=== PATIENT | female | born 1950 | race Caucasian/White ===

== ENCOUNTER → 2018-02-27 08:29 | Outpatient (CLI) | payer MEDICARE, OTHER, SELFPAY ==
--- NOTE | 2018-02-27 | DI.MG.S_ITS ---
BILATERAL DIGITAL SCREENING MAMMOGRAM 3D/2D WITH CAD: 02/27/2018 CLINICAL: Routine screening. Family history of breast cancer. Comparison is made to exams dated: 03/14/2016 mammogram, 01/26/2015 mammogram, and 10/04/2013 mammogram - [facility]. The tissue of both breasts is heterogeneously dense. This may lower the sensitivity of mammography. Current study was also evaluated with a Computer Aided Detection (CAD) system. No significant masses, calcifications, or other findings are seen in either breast. There has been no significant interval change. IMPRESSION: NEGATIVE There is no mammographic evidence of malignancy. A 1 year screening mammogram is recommended. This exam was interpreted at Station ID: [id number]. NOTE: For mammograms, a report in lay terms will be sent to the patient. Approximately 15% of breast malignancies will not be visualized mammographically. In the management of a palpable breast mass, a negative mammogram must not discourage biopsy of a clinically suspicious lesion. Electronically Signed By: Savannah araujo/mireya:03/01/2018 10:47:58 copy to: WILFRID CASILLAS letter sent: Normal Exam ACR BI-RADS Category 1: Negative 3341F
== END ==
PROVIDERS: Family Provider Family Medicine; PCP Family Medicine; Visit Provider Family Medicine
DX: Z12.31 Encounter for screening mammogram for malignant neoplasm of breast (principal); Z80.3 Family history of malignant neoplasm of breast
CPT/HCPCS: 77063; 77067

== ENCOUNTER → 2019-07-07 09:04 | Outpatient (CLI) | payer MEDICARE, OTHER, SELFPAY ==
--- NOTE | 2019-07-07 | DI.MG.S_ITS ---
BILATERAL DIGITAL SCREENING MAMMOGRAM 3D/2D WITH CAD: 07/07/2019 CLINICAL: Routine screening. Family history of breast cancer. Comparison is made to exams dated: 02/27/2018 mammogram, 03/14/2016 mammogram, and 01/26/2015 mammogram - [facility]. The tissue of both breasts is heterogeneously dense. This may lower the sensitivity of mammography. Current study was also evaluated with a Computer Aided Detection (CAD) system. No significant masses, calcifications, or other findings are seen in either breast. There has been no significant interval change. IMPRESSION: NEGATIVE There is no mammographic evidence of malignancy. A 1 year screening mammogram is recommended. This exam was interpreted at Station ID: [id number]. NOTE: For mammograms, a report in lay terms will be sent to the patient. Approximately 15% of breast malignancies will not be visualized mammographically. In the management of a palpable breast mass, a negative mammogram must not discourage biopsy of a clinically suspicious lesion. Electronically Signed By: Savannah araujo/mireya:07/07/2019 12:01:14 copy to: WILFRID CASILLAS letter sent: Normal Exam ACR BI-RADS Category 1: Negative 3341F
== END ==
PROVIDERS: PCP Family Medicine; Visit Provider Family Medicine
DX: Z12.31 Encounter for screening mammogram for malignant neoplasm of breast (principal); Z80.3 Family history of malignant neoplasm of breast
CPT/HCPCS: 77063; 77067

== ENCOUNTER 2020-05-24 08:52 | Day surgery (SDC) | payer MEDICARE, OTHER, SELFPAY ==
[2020-05-24 09:18] VITALS: BP 130/63; PULSE 69; RESP 14; TEMP 36.4; O2SAT 100; BMI 23.6
--- NOTE | 2020-05-24 09:56 | PM.HP.1 ---
History of Present Illness History of Present Illness Date Patient Seen: 05/24/20 Time Patient Seen: 09:56 Chief complaint: SDC Narrative: The patient is a woman whose last colonoscopy was 5 years ago. She has a history of polyps in her last 2 colonoscopies. She is brought in for a screening exam in a high risk patient. No family history colon cancer. Patient History Surgical History Status post arthroscopy Status post arthroscopy Status post delivery Status post sclerotherapy of varicose veins Family & Social History Family History Sister Age: 65 Hypertension Social History: household members spouse Tobacco & Substance use: Smoking Status Never smoker alcohol intake current alcohol intake frequency 0-2 drinks per day Substance Use Type does not use Meds Home Medications and Allergies Home Medications Medication Instructions Recorded Confirmed Type valacyclovir [Valtrex] 1,000 mg PO SEE INSTRUCTIONS #16 07/07/17 05/24/20 Rx tab Allergies Allergy/AdvReac Type Severity Reaction Status Date / Time amoxicillin [From Augmentin] Allergy Mild RASH Verified 05/24/20 09:28 clavulanic acid Allergy Mild RASH Verified 05/24/20 09:28 [From Augmentin] cefuroxime AdvReac Mild GROGGINESS Verified 05/24/20 09:28 Review of Systems Review of Systems ROS: Yes All systems reviewed with the patient and are negative except as otherwise documented Exam Vital Signs (past 8 hours): - 05/24/20 09:18 Temperature 97.6 F Pulse Rate 69 Respiratory Rate 14 Blood Pressure 130/63 Pulse Oximetry 100 Oxygen Delivery Method Room Air Narrative Exam Narrative: Pleasant cooperative patient no apparent distress. Lungs are clear to auscultation. No rales or rhonchi. Heart regular rate and rhythm no murmur gallop. Abdomen is soft nontender without mass. No obvious hernias. Patient is alert and oriented x3. Assessment & Plan Assessment & Plan narrative: The patient for a screening colonoscopy. I have discussed the procedure with them. Risks of bleeding, perforation which would necessitate major operation, failure to find remove all lesions, the potential tattoo were all discussed. All questions were answered. They wished to proceed.
--- NOTE | 2020-05-24 09:58 | PM.PREOP ---
Pre-operative Note COVID-19 COVID-19 status: Negative Result date/Date tested (Pos, Neg/Pending): 05/21/20 Interval Note History & Physical reviewed/Exam performed by Physician: Yes Changes to H&P: No ASA Class (for procedural sedation): I
[2020-05-24] MEDS: fentaNYL 250 MCG/5 ML INJ IV ×2 (11:02→11:28)
[2020-05-24] MEDS: MIDAZOLAM 5 MG/5 ML VIAL IV ×2 (11:03→11:27)
[2020-05-24] MEDS: LACTATED RINGERS 1,000 ML 200 ML IV (11:04)
--- NOTE | 2020-05-24 11:37 | PM.OP.ENDO ---
Operative Date/Time/Diagnoses Date of procedure: 05/24/20 Time of procedure: 11:37 Pre-op diagnosis: Screening exam. Patient has a history of polyps. Last exam 5 years ago. Post-op diagnosis: same Procedure & Clinicians Study performed: Colonoscopy Same procedure as scheduled: Yes Indications: Screening Surgeon: Beau Craven Procedure Notes SCOAP/Timeout: Performed Procedure in detail: The patient was placed in the left lateral decubitus position and underwent IV sedation directed by the surgeon consisting of fentanyl and Versed. Digital exam was remarkable for decreased sphincter tone.. The scope was inserted and advanced through the rectum into the sigmoid, descending, transverse, and ascending colon. Patient's colon was quite tortuous. Patient had to be repositioned a stiffener inserted and pressure applied in order to make our way to the cecum.. The cecum was reached identified by the ileocecal valve and the appendiceal opening. The scope was gradually brought out. No Polyps were found. The scope ultimately was retroflexed in the rectum. The appearance was remarkable for internal hemorrhoids. The scope was slowly brought through the anal canal and hemorrhoids were noted. No ulcerations.. The scope was removed and the patient tolerated the procedure well. The prep was adequate. Scope withdrawal time: 8 minutes Sedation minutes: 30 Findings: internal hemorrhoids Specimen(s): none sent Complications: none Post-procedure Recommendations: Colonscopy in 5 years Follow up: as needed Disposition: PACU
[2020-05-24 11:40] VITALS: BP 136/56; PULSE 85; RESP 16; TEMP 36.8; O2SAT 99
[2020-05-24 11:45] VITALS: BP 128/66; PULSE 75; RESP 10; O2SAT 99
[2020-05-24 11:50] VITALS: BP 136/67; PULSE 85; RESP 16; O2SAT 100
[2020-05-24 11:55] VITALS: BP 125/57; PULSE 82; RESP 12; O2SAT 100
[2020-05-24 11:57] VITALS: BP 122/62; PULSE 64; RESP 12; TEMP 36.9; O2SAT 100
== END 2020-05-24 12:19 | disposition home or self-care (01) ==
PROVIDERS: PCP Family Medicine; Referring Provider Family Medicine; Visit Provider Specialist
PROC: 0DJD8ZZ Inspection of Lower Intestinal Tract, Via Natural or Artificial Opening Endoscopic (ICD-10-PCS; CPT 45378; principal; 2020-05-24 10:45)
DX: Z12.11 Encounter for screening for malignant neoplasm of colon (principal); Z86.010 Personal history of colon polyps; K64.8 Other hemorrhoids
CPT/HCPCS: G0105; 99152; 99153; J2250; J3010

== ENCOUNTER → 2023-05-05 12:16 | Outpatient (CLI) | payer MEDICARE, OTHER, SELFPAY ==
--- NOTE | 2023-05-05 12:18 | DI.CT.S_ITS ---
PROCEDURE: CT SINUS SCREEN WO CON INDICATIONS: Chronic pansinusitis TECHNIQUE: Noncontrast 3.0 mm axial images acquired from the frontal sinuses to the mid-sella, with coronal and sagittal reformats. For radiation dose reduction, the following was used: automated exposure control, adjustment of mA and/or kV according to patient size. COMPARISON: None. FINDINGS: Image quality: Excellent. Maxillary Sinuses: No bony remodeling or destruction. Sinuses are clear. Ethmoid Air Cells: No bony remodeling or destruction. Sinuses are clear. Sphenoid Sinuses: No bony remodeling or destruction. Sinuses are clear. Frontal Sinuses: No bony remodeling or destruction. Sinuses are clear. Ostiomeatal Complexes: Ostiomeatal complexes are patent, yet they are highly constitutionally narrowed. The right ostiomeatal complex is nearly occluded by soft tissue thickening. There are bilateral Martine cells. Miscellaneous: Visualized intra-orbital contents are normal. There is a small left-sided hemant bullosa. There is minimal leftward nasal septal deviation. Focal right temporomandibular joint degenerative change is seen, as on series 5, image 14. IMPRESSION: No significant active paranasal sinus disease is seen. Highly narrowed ostiomeatal complexes, with bilateral Martine cell seen. Minimal leftward nasal septal deviation can be seen. Focal right temporomandibular joint degenerative change can be seen. Dictated by: Arunlfo Tse M.D. on 05/05/2023 at 12:55 Approved by: Arnulfo Tse M.D. on 05/05/2023 at 12:57
== END ==
PROVIDERS: PCP Family Medicine; Referring Provider Otolaryngology; Visit Provider Otolaryngology
DX: J32.4 Chronic pansinusitis (principal); J34.89 Other specified disorders of nose and nasal sinuses; R44.8 Other symptoms and signs involving general sensations and perceptions; J34.2 Deviated nasal septum
CPT/HCPCS: 70486